=== PATIENT | male | born 1985 | race Caucasian/White ===

== ENCOUNTER 2018-06-13 21:49 | Emergency (ER) | payer SELFPAY ==
[~2018-06-13] VITALS: Ht 177.8 cm; Wt 79.5 kg
[2018-06-13 22:03] VITALS: Ht 177.8 cm; Wt 79.5 kg
[2018-06-13] MEDS ORDERED: VYVANSE60 MG PO (22:04)
[2018-06-13] MEDS ORDERED: ZOLOFT25 MG PO (22:04)
[2018-06-13] MEDS ORDERED: CYCLOBENZAPRINE10 MG PO (22:04)
[2018-06-13] MEDS ORDERED: NORCO 7.5/325 T1 TA1 PO (22:05)
[2018-06-14] MEDS ORDERED: ZANAFLEX4 MG PO (01:44)
[2018-06-14] MEDS ORDERED: OMEPRAZOLE20 M1 PO (01:44)
[2018-06-14] MEDS ORDERED: VOLTAREN75 MG PO (01:44)
[2018-06-14 01:56] VITALS: BP 128/105
== END 2018-06-14 01:58 | disposition home or self-care (01) ==
LOC: D.ER 21:49
DX: M54.2 Cervicalgia (principal); M25.511 Pain in right shoulder; M25.531 Pain in right wrist